=== PATIENT | female | born 1965 | race Caucasian/White ===

== ENCOUNTER 2023-07-19 08:53 | Outpatient (CLI) | payer MEDICARE | END 2023-07-19 08:54 | disposition home or self-care (01) | LOC: CSHCT 08:53 | PROVIDERS: ATTEND Family Medicine | DX: M25.571 Pain in right ankle and joints of right foot (principal); M46.1 Sacroiliitis, not elsewhere classified; Z12.2 Encounter for screening for malignant neoplasm of respiratory organs; F17.200 Nicotine dependence, unspecified, uncomplicated; M77.31 Calcaneal spur, right foot; M43.28 Fusion of spine, sacral and sacrococcygeal region | CPT/HCPCS: 71271; 72202 ==